=== PATIENT | male | born 1985 | race Caucasian/White ===

== ENCOUNTER → 2018-01-24 | Outpatient (REF) ==
[~2018-01-24] MED LIST: AMO500 PO; AMOX-559 PO; IBU800 PO; IBUP600T22 PO; NO; PER PO; PRE20 PO
== END ==
LOC: AUD 08:23
PROVIDERS: ATTEND Internal Medicine
DX: Z01.10 Encounter for examination of ears and hearing without abnormal findings (principal)
CPT/HCPCS: 92552

== ENCOUNTER → 2019-02-14 | Outpatient (REF) | LOC: AUD 08:40 | PROVIDERS: ATTEND Internal Medicine | DX: Z01.12 Encounter for hearing conservation and treatment (principal) | CPT/HCPCS: 92552 ==